=== PATIENT | male | born 2000 | race Caucasian/White ===

== ENCOUNTER 2021-06-30 04:26 | Emergency (ER) | payer SELFPAY ==
[2021-06-30 04:44] VITALS: BP 117/71; PULSE 83
--- NOTE | 2021-06-30 04:53 | EDM.PDOC ---
ED HPI GENERAL MEDICAL PROBLEM - General Chief Complaint: Eye Problems Stated Complaint: EYE IS MESSED UP Time Seen by Provider: 06/30/21 04:36 - History of Present Illness INITIAL COMMENTS - FREE TEXT/NARRATIVE: Patient is an otherwise well 20-year-old male presenting with 1 week of intermittent left-sided periorbital stabbing headache associated with tearing. Symptoms come on suddenly last for an hour or so and then gradually fade away in between the episodes he feels normal. No history of head or ocular trauma no prior history of headaches. No neck pain no fever. No difficulty breathing or swallowing no myalgias and no other complaints. No clear triggers symptoms seem to happen the most at night while he is either trying to sleep or sleeping. Left Eye Pain Score (Numeric/FACES): 7 - Related Data Allergies Allergy/AdvReac Type Severity Reaction Status Date / Time No Known Allergies Allergy Verified 06/30/21 04:39 Home Meds: Home Meds . [No Known Home Meds] 07/03/15 [History] Past Medical History - Past Health History Medical/Surgical History: Denies Medical/Surgical History - Infectious Disease History Infectious Disease History: Reports: None Social & Family History - Family History Family Medical History: No Pertinent Family History - Tobacco Use Tobacco Use Status *Q: Never Tobacco User - Recreational Drug Use Recreational Drug Use: No ED ROS GENERAL - Review of Systems Review Of Systems: See Below Free Text/Narrative/Comment: General: No fever. Skin: No rash. Eyes: No vision problems. ENT: No sore throat. Neck: No neck stiffness. Respiratory: No shortness of breath. Cardiac: No chest pain. Gastrointestinal: No nausea, vomiting or abdominal pain. Urinary: No dysuria. Musculoskeletal: No myalgias/arthralgias. Neurologic: Per HPI ED EXAM GENERAL W FULL EYE - Physical Exam Exam: See Below Text/Narrative:: General Appearance: No acute distress, appears comfortable HEENT: Normocephalic/atraumatic, sclera anicteric, mucous membranes moist, pupils PERRLA, conjunctive are normal bilaterally without injection fundus exam normal anterior chamber exam normal no ocular foreign body on the left Neck: Normal range of motion Chest and Lungs: Bilateral breath sounds, clear to auscultation Cardiovascular: Regular rate and rhythm, no murmur Abdomen: Soft, non-tender Back: Normal Musculoskeletal: No edema or tenderness Neurologic: Awake, alert, no obvious deficits, moving all extremities, cranial nerves III through XI intact bilaterally Psychiatric: Appropriate, cooperative Course - Vital Signs Last Recorded V/S: Last Vital Signs Temp 97.3 F 06/30/21 04:39 Pulse 83 06/30/21 04:39 Resp 16 06/30/21 04:39 BP 117/71 06/30/21 04:39 Pulse Ox 96 06/30/21 04:39 Departure - Departure Time of Disposition: 04:52 Disposition: Home, Self-Care 01 Condition: Good Clinical Impression: Cluster headache - Discharge Information *PRESCRIPTION DRUG MONITORING PROGRAM REVIEWED*: Not Applicable *COPY OF PRESCRIPTION DRUG MONITORING REPORT IN PATIENT EMEKA: Not Applicable Instructions: Cluster Headache, [id number] Forms: ED Department Discharge Additional Instructions: I recommend that for the next 5 days you take 600 mg of ibuprofen around every 8 hours with food to try and break the cycle of this headache. If your headache comes and does not go away or comes in is very severe with other symptoms such as vomiting or neck pain or any other symptoms that concern you please return to the ER. Otherwise I encourage you to follow-up either with the primary care clinic or with a neurologist. [facility] - Primary Care [address] [place] [address] [place] [address] [facility] - Neurology Professional Building [address] [place] [address], [address] [place] [address] The following information is given to patients seen in the emergency department who are being discharged to home. This information is to outline your options for follow-up care. We provide all patients seen in our emergency department with a follow-up referral. The need for follow-up, as well as the timing and circumstances, are variable depending upon the specifics of your emergency department visit. If you don't have a primary care physician on staff, we will provide you with a referral. We always advise you to contact your personal physician following an emergency department visit to inform them of the circumstance of the visit and for follow-up with them and/or the need for any referrals to a consulting specialist. The emergency department will also refer you to a specialist when appropriate. This referral assures that you have the opportunity for follow-up care with a specialist. All of these measure are taken in an effort to provide you with o ptimal care, which includes your follow-up. Under all circumstances we always encourage you to contact your private physician who remains a resource for coordinating your care. When calling for follow-up care, please make the office aware that this follow-up is from your recent emergency room visit. If for any reason you are refused follow-up, please contact the [facility] Emergency Department at and asked to speak to the emergency department charge nurse. Sepsis Event Note (ED) - Focused Exam Vital Signs: Vital Signs Temp Pulse Resp BP Pulse Ox 06/30/21 04:39 97.3 F 83 16 117/71 96 - Assessment/Plan Assessment:: Presentation fits cluster presentation fits cluster headaches far better than migraines. No findings that suggest meningitis or encephalitis patient is not the appropriate age to consider temporal arteritis there is no findings that suggest deep space infection of the head or neck the ocular exam itself is normal and his visual acuities are normal there is no findings that suggest ocul ar infection or retained foreign body or corneal abrasion. Recommended to start with conservative management with ibuprofen. Encourage follow-up with either primary care or neurology. Return precautions discussed and understood. No findings suggest intracranial mass no findings suggest subarachnoid hemorrhage. 20-year-old male presenting with signs and symptoms that are most consistent with a cluster headache syndrome.
== END 2021-06-30 05:02 | disposition home or self-care (01) ==
LOC: MW.ED 04:26
DX: G44.009 Cluster headache syndrome, unspecified, not intractable (principal)
CPT/HCPCS: 99283

== ENCOUNTER 2023-07-05 16:10 | Emergency (ER) | payer SELFPAY ==
[2023-07-05] MEDS ORDERED: Lidocaine 1% PF 2 ML SDV INJECT ONE (16:28)
[2023-07-05] MEDS ORDERED: Bupivacaine 0.5% 10 ML SDV INJECT ONE (16:28)
[2023-07-05] MEDS ORDERED: Amoxicillin/Clavulanate K 875-125 MG Tab PO ONE (16:28)
[2023-07-05 16:32] VITALS: BP 141/79; PULSE 93
== END 2023-07-05 16:40 | disposition home or self-care (01) ==
LOC: MW.ED 16:10
DX: K04.7 Periapical abscess without sinus (principal)
CPT/HCPCS: 64400; 99282; A9270; J3490; 99283